=== PATIENT | female | born 2000 | race Caucasian/White ===

== ENCOUNTER → 2023-05-04 13:25 | Outpatient (BNVA) | payer OTHER, SELFPAY | PROVIDERS: Visit Provider Psychiatry & Neurology Psychiatry | DX: Z79.899 Other long term (current) drug therapy (principal) | CPT/HCPCS: 80053; 80061; 83036; 84443; 85025 ==

== ENCOUNTER 2023-08-09 17:54 | Emergency (ER) | payer BC, MEDICAID, SELFPAY ==
[2023-05-24 16:01] VITALS: BP 133/87
[2023-05-24 16:03] VITALS: BMI 24.1
[2023-08-09 17:56] VITALS: BP 126/81; PULSE 93; TEMP 36.9; O2SAT 99; BMI 25.1
--- NOTE | 2023-08-09 18:12 | W.ED.FEMALGU ---
HPI - Female Genitourinary General: Chief complaint: Urogenital-Female Stated complaint: RT flank pain Time Seen by Provider: 08/09/23 17:56 History of Present Illness: Patient presents to the ER with complaints of right-sided flank area pain. Pain started approximately 2 days ago. Deep breathing causes worse pain. Patient does have a history of kidney stones. Patient states when she takes a big deep breath it hurts and when she only breathes shallow it does not hurt. Patient went to the urgent care somewhere and had a CT scan report that showed she does not have any kidney stones. Patient showed me the report also showed 1 kidney on the right side is twice the size is the 1 on the left. Patient is nontoxic and does not appear in acute distress at this time. Review of Systems General: Reports: 10 or more systems reviewed and unremarkable except in HPI and below PFSH ED PFSH: Medical History Psychiatric care Family History Other Cancer Family history of premature coronary artery disease Hypertension Psychiatric illness Social History Smoking and tobacco/nicotine status: current every day tobacco/nicotine user cigarettes Packs smoked per day: 0.5 Years cigarettes smoked: 8 and e-cigarettes E-Cigarette Details: e-cigarette and with nicotine E-cig/vape details: 2-3 days Quit status (tobacco/nicotine): considering quitting Second hand smoke exposure: Yes Alcohol intake: former Year of sobriety/quit date alcohol: 2022 Former alcohol use details: 02.21.23 Substance/Drug Use: former Date of last use: 02.21.23 Adopted: No Caregiver/support person: No Lives independently: No Household members: other Details: Sabianism based group facility ([facility]) 5 otherscurrently Housing: Other Details: [facility] nursing home Marital status: Single Number of children: 2 Number of grandchildren: 0 Highest education level completed: 11th Grade service: No Current occupational status: employed 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 Pets and animals: No Leisure activites: reading and other Leisure activities details: watch movies Sexually active: No Do you think of yourself as: Straight/Heterosexual Current gender identity: Female Daisy/Oriental Orthodox: Sabianism Special daisy needs: No Agree to transfusion: Yes Female Reproductive History: Para: 2 Spontaneous abortions: Yes (X 1) Physical Exam Const: COMMON NORMALS: no acute distress, average body habitus, patient oriented x3, no limitations, healthy appearing, alert and well nourished HENMT: COMMON NORMALS: normocephalic, atraumatic, hearing grossly normal bilaterally, external ears normal, Normal external nose present, moist oral mucous membranes and oropharynx normal HEAD & SCALP: normocephalic and atraumatic NOSE: Normal external nose present EXTERNAL EAR: Yes external ears normal Neck/C-Spine: COMMON NORMALS: full ROM, no lymphadenopathy, supple, no meningeal signs, no JVD and Thyroid normal THYROID: Thyroid normal Chest: COMMONS NORMALS: normal inspection of the chest and normal palpation of entire chest wall Resp: COMMON NORMALS: normal respiratory effort, No retractions, No use of accessory muscles and clear to auscultation bilaterally AUSCULTATION: clear to auscultation bilaterally Cardio: COMMON NORMALS: no JVD, regular rate, regular rhythm, S1 normal heart sound present, S2 normal heart sound present, No gallops present (Cardio), No clicks present (Cardio), No murmurs present (Cardio) and No rub (Cardio) RATE: regular rate RHYTHM: regular rhythm HEART SOUNDS: S1 normal heart sound present and S2 normal heart sound present GI: COMMON NORMALS: Normal to inspection, nondistended, normoactive bowel sounds present, Soft to palpation, non-tender, No hepatosplenomegaly present and no masses PALPATION: Yes Soft to palpation and Yes No hepatosplenomegaly present Neuro: COMMON NORMALS: patient oriented x3 SENSORIUM/ORIENTATION: Yes alert MENINGEAL SIGNS: Yes no meningeal signs Course Vital Signs: Vital signs: Vital Signs Temperature 98.5 F 08/09/23 17:56 Pulse Rate 80 08/09/23 21:13 Respiratory Rate 18 08/09/23 21:13 Blood Pressure 123/88 08/09/23 21:13 Pulse Oximetry 97 08/09/23 21:13 Oxygen Delivery Me thod Room Air 08/09/23 21:13 MDM - Female Medical Decision Making After physical exam, review of the CT scan report you provided, review of the lab work, and chest x-ray, it is felt you have pleuritis or pleurisy. You will be given a prescription for prednisone and should follow-up with your family doctor within the next 7 to 10 days for further evaluation and treatment. Differential Diagnosis Unlikely abdominal pain, acute appendicitis, calculus of kidney, constipation, diverticulitis, endometriosis, gastroenteritis, pancreatitis or small bowel obstruction Medical Records I reviewed the patient's medical records. Lab Data I reviewed the patient's lab results. 08/09/23 18:54 08/09/23 18:54 Radiology Impressions Chest X-Ray 08/09/23 19:26 IMPRESSION: No acute findings. Laboratory Results WBC 11.00 10^3/uL (3.29-11.43) 08/09/23 18:54 RBC 4.01 10^6/uL (3.85-5.65) 08/09/23 18:54 Hgb 12.10 g/dL (11.27-16.99) 08/09/23 18:54 Hct 37.5 % (36-47) 08/09/23 18:54 MCV 93.5 fl (85-98) 08/09/23 18:54 MCH 30.2 pg (27-33) 08/09/23 18:54 MCHC 32.3 g/dL (30-55) 08/09/23 18:54 RDW 11.3 % (12.1-15.1) L 08/09/23 18:54 Plt Count 352 10^3/cmm (157-399) 08/09/23 18:54 MPV 8.8 fL (7.4-10.4) 08/09/23 18:54 Neut % (Auto) 70.4 % 08/09/23 18:54 Lymph % (Auto) 21.9 % 08/09/23 18:54 [place] % (Auto) 6.6 % 08/09/23 18:54 Eos % (Auto) 0.5 % 08/09/23 18:54 Baso % (Auto) 0.4 % 08/09/23 18:54 Neut # (Auto) 7.74 10^3/uL (1.8-7.7) H 08/09/23 18:54 Lymph # (Auto) 2.4 10^3/uL (0.8-4.8) 08/09/23 18:54 [place] # (Auto) 0.7 10^3/uL (0.2-0.9) 08/09/23 18:54 Eos # (Auto) 0.1 10^3/uL (0.0-0.8) 08/09/23 18:54 Baso # (Auto) 0.0 10^3/uL (0.0-0.1) 08/09/23 18:54 Nucleated RBC % (auto) 0 % 08/09/23 18:54 Nucleated RBCs # 0.0 /100WBC 08/09/23 18:54 Sodium 139 mmol/L (136-145) 08/09/23 18:54 Potassium 4.4 mmol/L (3.5-5.1) 08/09/23 18:54 Chloride 102 mmol/L (98-107) 08/09/23 18:54 Carbon Dioxide 26 mmol/L (22-29) 08/09/23 18:54 Anion Gap 15.4 (5-19) 08/09/23 18:54 BUN 13 mg/dL (6-20) 08/09/23 18:54 Creatinine 0.6 mg/dL (0.5-0.9) 08/09/23 18:54 GFR Calculation 125.0 mL/min (90-130) 08/09/23 18:54 Glucose 89 mg/dL (65-115) 08/09/23 18:54 Calculated Osmolality 288 mOsm/kg (285-295) 08/09/23 18:54 Calcium 9.5 mg/dL (8.5-10.5) 08/09/23 18:54 Total Bilirubin 0.2 mg/dL (0.15-1.2) 08/09/23 18:54 AST 20 U/L (0-32) 08/09/23 18:54 ALT 12 U/L (0-33) 08/09/23 18:54 Alkaline Phosphatase 65 U/L (35-105) 08/09/23 18:54 C-Reactive Protein 92.1 mg/L (0.0-4.9) H 08/09/23 18:54 Total Protein 8.3 g/dL (6.6-8.7) 08/09/23 18:54 Albumin 4.0 g/dL (3.5-5.2) 08/09/23 18:54 Globulin 4.3 g/dL (1.3-4.6) 08/09/23 18:54 Urine Color Colorless (Yellow) 08/09/23 18:26 Urine Appearance Clear (CLEAR) 08/09/23 18:26 Urine pH 7 (5-7) 08/09/23 18:26 Ur Specific [place] 1.005 (1.005-1.030) 08/09/23 18:26 Urine Protein Neg (Negative) 08/09/23 18:26 Urine Glucose (UA) Norm (Normal) 08/09/23 18:26 Urine Ketones Negative (Negative) 08/09/23 18:26 Urine Blood 2+ (Negative) H 08/09/23 18:26 Urine Nitrate Negative (Negative) 08/09/23 18:26 Urine Bilirubin Neg (Negative) 08/09/23 18:26 Urine Urobilinogen Norm mg/dL (Negative) 08/09/23 18:26 Ur Leukocyte Esterase Negative (Negative) 08/09/23 18:26 Urine RBC 0-4 /hpf (0-2) H 08/09/23 18:26 Urine WBC 0-4 /hpf (0-5) H 08/09/23 18:26 Ur Squamous Epith Cells 0-4 /hpf (0-5) H 08/09/23 18:26 Ur Transition Epith Cell 0-4 /hpf 08/09/23 18:26 Amorphous Sediment Not Reportable 08/09/23 18:26 Urine Bacteria Trace /hpf (NONE) 08/09/23 18:26 Urine Mucus None /hpf 08/09/23 18:26 All radiology interpretation(s) finalized by discharge Discharge Plan Discharge Patient Disposition: Home Clinical Impression: Pleurisy Condition: Stable Prescriptions: New prednisone 50 mg tablet 50 mg PO DAILY 5 Days Qty: 5 0RF Discharge Orders: Discharge ED (Routine); Ordered 08/09/23 Ordered By: Vijay Tate Patient Instructions: Pleurisy Activity Restrictions/Additional Instructions: Please take all your prednisone as directed. Please follow-up with your family practice physician within the next 7 to 10 days as needed for further evaluation and treatment. Coding Level of Care Code ED Fishing Tool Supervisor for Montez Samson
[2023-08-09 18:17] VITALS: BP 116/79; PULSE 90; RESP 18; O2SAT 96
[2023-08-09 18:47] VITALS: BP 123/82; PULSE 81; RESP 16; O2SAT 99
--- NOTE | 2023-08-09 18:48 | PC.NURSE ---
assumed care of pt at this time
[2023-08-09 19:10] LABS: Basophils % 0.4 %; Eosinophils # 0.1 10^3/uL (0.0-0.8); Eosinophils % 0.5 %; Hematocrit 37.5 % (36-47); Lymphocytes # 2.4 10^3/uL (0.8-4.8); Lymphocytes % 21.9 %; Mean Corpuscular HGB Conc 32.3 g/dL (30-55); Mean Corpuscular Hemoglobin 30.2 pg (27-33); Mean Corpuscular Volume 93.5 fl (85-98); Mean Platelet Volume 8.8 fL (7.4-10.4); Monocytes # 0.7 10^3/uL (0.2-0.9); Monocytes % 6.6 %; Neutrophils # 7.74 10^3/uL (1.8-7.7); Neutrophils % 70.4 %; Nucleated Red Blood Cells % 0 %; Platelet Count 352 10^3/cmm (157-399); Red Blood Count 4.01 10^6/uL (3.85-5.65); Red Cell Distribution Width 11.3 % (12.1-15.1)
--- NOTE | 2023-08-09 19:26 | XRR_ITS ---
PROCEDURE INFORMATION: Exam: XR Chest Exam date and time: 08/09/2023 7:30 PM Age: 23 years old Clinical indication: Pain; Chest pressure; Additional info: Rll pleuritic type pain TECHNIQUE: Imaging protocol: Radiologic exam of the chest. Views: 1 view. COMPARISON: No relevant prior studies available. FINDINGS: Lungs: Unremarkable. No consolidation. Pleural spaces: Unremarkable. No pleural effusion. No pneumothorax. Heart/Mediastinum: Unremarkable. No cardiomegaly. Bones/joints: Unremarkable. XR/XR chest 1V portable [id number] IMPRESSION: No acute findings.
[2023-08-09 19:36] LABS: Add Urine Microscopic? YES; Bilirubin Urine Neg (Negative); Blood Urine 2+ (Negative); Glucose Urine UA Norm (Normal); Ketones Urine Negative (Negative); Leukocyte Esterase Urine Negative (Negative); Nitrate Urine Negative (Negative); Protein Urine Neg (Negative); Specific Gravity, Urine 1.005 (1.005-1.030); Urine Appearance Clear (CLEAR); Urine Color Colorless (Yellow); Urobilinogen Urine Norm (Negative); pH Urine 7 (5-7)
[2023-08-09 19:38] LABS: Add Urine Culture? No; Bacteria Urine TRACE /hpf; RBC Urine 0-4 /hpf (0-2); Squamous Epithelial Cell Urine 0-4 /hpf (0-5); Transitional Epi Cells Urine 0-4 /hpf; WBC Urine 0-4 /hpf (0-5)
[2023-08-09 19:52] LABS: Alanine Aminotransferase 12 U/L (0-33); Alkaline Phosphatase 65 U/L (35-105); Blood Urea Nitrogen 13 mg/dL (6-20); C Reactive Protein 92.1 mg/L (0.0-4.9); Calcium 9.5 mg/dL (8.5-10.5); Carbon Dioxide 26 mmol/L (22-29); Chloride 102 mmol/L (98-107); Globulin 4.3 g/dL (1.3-4.6); Glucose 89 mg/dL (65-115); Osmolality Calculated 288 mOsm/kg (285-295); Sodium 139 mmol/L (136-145); Total Bilirubin 0.2 mg/dL (0.15-1.2); Total Protein 8.3 g/dL (6.6-8.7)
[2023-08-09 19:53] LABS: Anion Gap 15.4 (5-19); Aspartate Amino Transferase 20 U/L (0-32); Potassium 4.4 mmol/L (3.5-5.1)
[2023-08-09 20:34] VITALS: BP 133/76; PULSE 83; RESP 18; O2SAT 98
[2023-08-09 21:13] VITALS: BP 123/88; PULSE 80; RESP 18; O2SAT 97
[2023-08-09] MEDS: dexamethasone 10 mg/mL INJ IM (21:45)
[2023-08-09] MEDS: ketorolac 30 mg/mL INJ IM (21:45)
[2023-08-09 21:46] VITALS: BP 128/82; PULSE 71; RESP 18; O2SAT 97
== END 2023-08-09 21:47 | disposition home or self-care (01) ==
PROVIDERS: Emergency Provider Emergency Medicine; PCP Physician Assistant
DX: R09.1 Pleurisy (principal); F17.210 Nicotine dependence, cigarettes, uncomplicated; F17.290 Nicotine dependence, other tobacco product, uncomplicated
CPT/HCPCS: 36415; 71045; 80053; 81001; 85025; 86140; 96372; 99284; J1100; J1885

== ENCOUNTER 2024-02-17 11:15 | Outpatient (CLI) | payer OTHER, SELFPAY ==
[2023-05-24 16:01] VITALS: BP 133/87
[2023-05-24 16:03] VITALS: BMI 24.1
--- NOTE | 2024-02-17 11:22 | XR_ITS ---
WS: [id number] Exam: XR sacroiliac jts m 3V [id number] Date/Time of Exam: 02/17/2024 11:56 AM Reason For Exam: Z79.899 - Other long-term (current) drug therapy No fracture or bone destruction. The SI joints are open. The sacrum is unremarkable. XR/XR sacroiliac jts m 3V [id number] IMPRESSION: 1. Unremarkable bilateral SI joints.
--- NOTE | 2024-02-17 11:22 | XR_ITS ---
WS: [email or web address] Exam: XR wrist RT min 3V* [id number] Date/Time of Exam: 02/17/2024 11:56 AM Reason For Exam: Z79.899 - Other alf (current) drug therapy There are no fractures, soft tissue swelling, or unusual calcifications. The wrist shows normal bony alignment. There is no irregularity of the bony architecture. XR/XR wrist RT min 3V* [id number] IMPRESSION: Negative RIGHT wrist.
--- NOTE | 2024-02-17 11:22 | XR_ITS ---
WS: [email or web address] Exam: XR thoracic spine 3V* [id number] Date/Time of Exam: 02/17/2024 11:56 AM Reason For Exam: Z79.899 - Other senior care (current) drug therapy Findings: In the AP projection, the thoracic spine is straight. In the lateral projection, the thoracic curve is well maintained. The intervertebral disc spaces are intact. No fractures or anomalies of the tho racic spine are noted. XR/XR thoracic spine 3V* [id number] IMPRESSION: Negative thoracic spine.
[2024-02-17 12:29] LABS: Erythrocyte Sedimentation Rate 6 mm/hr (0-15)
== END 2024-02-17 11:16 | disposition home or self-care (01) ==
LOC: LAB 11:18
PROVIDERS: PCP Physician Assistant; Visit Provider Internal Medicine Rheumatology
DX: Z79.899 Other long term (current) drug therapy (principal); M19.90 Unspecified osteoarthritis, unspecified site
CPT/HCPCS: 72072; 72202; 73110; 85651; 86140

== ENCOUNTER 2024-05-04 18:43 | Emergency (ER) | payer BC, MEDICAID, SELFPAY ==
[2023-05-24 16:01] VITALS: BP 133/87
[2023-05-24 16:03] VITALS: BMI 24.1
[2024-05-04 19:17] VITALS: BP 92/61; PULSE 99; RESP 16; TEMP 36.7; O2SAT 98; BMI 21.4
[2024-05-04 20:31] VITALS: BP 120/71; PULSE 93; RESP 14; O2SAT 98
--- NOTE | 2024-05-04 20:33 | W.ED.WEAKNES ---
HPI - Weakness General: Chief complaint: Weakness Stated complaint: Sore tHROAT Time Seen by Provider: 05/04/24 20:16 History of Present Illness: 24-year-old female with a history of unilateral kidney presents emergency room with sore throat and weakness. Has been going on for a few days. She has some lesions on her nose and cheek that she says are from a cream she got from [employer] for acne. No abdominal pain. No nausea or vomiting. She has some malaise. Review of Systems Narrative: Constitutional symptoms: Negative except as documented in HPI. Skin symptoms: Negative except as documented in HPI. Eye symptoms: Negative except as documented in HPI. ENMT symptoms: Negative except as documented in HPI. Respiratory symptoms: Negative except as documented in HPI. Cardiovascular symptoms: Negative except as documented in HPI. Gastrointestinal symptoms: Negative except as documented in HPI. Genitourinary symptoms: Negative except as documented in HPI. Musculoskeletal symptoms: Negative except as documented in HPI. Neurologic symptoms: Negative except as documented in HPI. Psychiatric symptoms: Negative except as documented in HPI. Endocrine symptoms: Negative except as documented in HPI. 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 Depression with anxiety Mood disorder Joint pain Elevated erythrocyte sedimentation rate Elevated C-reactive protein Chronic low back pain Psychiatric care Surgical History (Updated 02/02/24 @ 13:12 by Paulo Covington MD) History of wisdom tooth extraction History of appendectomy Family History (Updated 02/02/24 @ 10:41 by Melissa Gutierrez LPN) Other Cancer Family history of premature coronary artery disease Hypertension Psychiatric illness Denies family history of Lupus (systemic lupus erythematosus) Rheumatoid arthritis Social History Smoking and tobacco/nicotine status: never used tobacco/nicotine Quit status (tobacco/nicotine): considering quitting Second hand smoke exposure: Yes Alcohol intake: former Year of sobriety/quit date alcohol: 2022 Former alcohol use details: 02.21.23 Substance/Drug Use: former Date of last use: 02.21.23 Adopted: No Caregiver/support person: No Lives independently: No Household members: other Details: [place] based group facility ([facility]) 5 otherscurrently Housing: Other Details: [facility] Marital status: Single Number of children: 2 Number of grandchildren: 0 Highest education level completed: 11th Grade service: No 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 Skin: Warm, dry. Abrasion type lesions on the cheek and nose. Head: Normocephalic, atraumatic. Neck: Supple, trachea midline. Eye: Extraocular movements are intact. Ears, nose, mouth and throat: Erythematous pharynx with some exudate, dry oral mucosa Cardiovascular: Regular, Normal peripheral perfusion. Respiratory: Lungs are clear to auscultation, respirations are non-labored, breath sounds are equal, Symmetrical chest wall expansion. Gastrointestinal: Soft, Nontender, Non distended Musculoskeletal: Normal ROM, no deformity. Neurological: Alert and oriented, No focal neurological deficit observed. Psychiatric: Cooperative, appropriate mood & affect. Course Vital Signs: Vital signs: Vital Signs Temperature 98.0 F 05/04/24 19:17 Pulse Rate 96 05/04/24 21:42 Respiratory Rate 12 05/04/24 21:42 Blood Pressure 102/65 05/04/24 21:42 Pulse Oximetry 94 05/04/24 21:42 Oxygen Delivery Me thod Room Air 05/04/24 21:42 MDM - Weakness Medical Decision Making Medical decision making: Differential diagnosis including but not limited to and based on the above HPI, review of systems and physical exam: Patient has several complaints. Weakness, sore throat. She has some strange rash. Have concern for UTI, strep throat, viral pharyngitis, mono. Dehydration. Orders placed to evaluate differential diagnosis based on the above differential, HPI and physical exam Lab Review: Laboratory results were reviewed and interpreted by myself the emergency room physician. Patient has some leukocytosis with a white count of 16.8. Hemoglobin is 12. BUN and creatinine are elevated for a 24-year-old at 16 and 1.1. Urinalysis is concentrated with 2+ leukocyte esterase, and white cells present which would indicate a urinary tract infection. Urine drug screen is positive for opiates, benzos and methamphetamine. I reviewed the patient's medical record. Reexamination: Patient has remained stable. She has a borderline low blood pressure but this can be normal in a female her age. She is not tachycardic after fluids no altered mental status. No focal motor deficits. She is a little bit somnolent. I did bring up the methamphetamine in her urine and discussed that if she is injecting methamphetamine this could result in bacteremia and endocarditis and that I strongly suggest she not. She denies it at this time. Her CRP is quite elevated. She tells me that it is always up because of possible rheumatoid arthritis. Assessment and plan: Pharyngitis Urinary tract infection Dehydration -Normal saline bolus, IV Rocephin in the emergency room. -Blood cultures were sent. - Discharged home - Discussed findings and plan with patient. Answered any questions. - All laboratory values were reviewed and interpreted personally by myself, the ER physician - Evaluation and treatment of this problem were appropriate in the emergency setting Lab Data 05/04/24 20:28 05/04/24 20: Laboratory Results WBC 16.77 10^3/uL (3.29-11.43) H 05/04/24 20: RBC 4.00 10^6/uL (3.85-5.65) 05/04/24 20: Hgb 12.20 g/dL (11.27-16.99) 05/04/24 20: Hct 38.0 % (36-47) 05/04/24 20: MCV 95.0 fl (85-98) 05/04/24 20: MCH 30.5 pg (27-33) 05/04/24 20: MCHC 32.1 g/dL (30-55) 05/04/24 20: RDW 12.9 % (12.1-15.1) 05/04/24 20: Plt Count 253 10^3/cmm (157-399) 05/04/24 20: MPV 9.8 fL (7.4-10.4) 05/04/24 20: Neut % (Auto) 85.1 % 05/04/24 20:28 Lymph % (Auto) 3.5 % 05/04/24 20: [place] % (Auto) 6.7 % 05/04/24 20: Eos % (Auto) 3.6 % 05/04/24 20: Baso % (Auto) 0.4 % 05/04/24 20: Neut # (Auto) 14.28 10^3/uL (1.8-7.7) H 05/04/24 20: Lymph # (Auto) 0.6 10^3/uL (0.8-4.8) L 05/04/24 20: [place] # (Auto) 1.1 10^3/uL (0.2-0.9) H 05/04/24: Eos # (Auto) 0.6 10^3/uL (0.0-0.8) 05/04/24: Baso # (Auto) 0.1 10^3/uL (0.0-0.1) 05/04/24: Nucleated RBC % (auto) 0 % 05/04/24: Nucleated RBCs # 0.0 /100WBC 05/04/24: ESR 12 mm/hr (0-15) 05/04/24 20: Sodium 138 mmol/L (136-145) 05/04/24 20: Potassium 3.7 mmol/L (3.5-5.1) 05/04/24 20: Chloride 102 mmol/L (98-107) 05/04/24 20: Carbon Dioxide 27 mmol/L (22-29) 05/04/24: Anion Gap 12.7 (5-19) 05/04/24 20: BUN 16 mg/dL (6-20) 05/04/24 20: Creatinine 1.1 mg/dL (0.5-0.9) H 05/04/24 20: GFR Calculation 61.6 mL/min (90-130) L 05/04/24 20: Glucose 87 mg/dL (65-115) 05/04/24 20: Calculated Osmolality 287 mOsm/kg (285-295) 05/04/24 20: Lactic Acid 2.3 mmol/L (0.5-2.2) H 05/04/24:28 Calcium 8.8 mg/dL (8.5-10.5) 05/04/24 20: Total Bilirubin 0.4 mg/dL (0.15-1.2) 05/04/24 20: AST 79 U/L (0-32) H 05/04/24 20: ALT 55 U/L (0-33) H 05/04/24 20:28 Alkaline Phosphatase 121 U/L (35-105) H 05/04/24 20: Creatine Kinase 211 U/L (26-192) H 05/04/24 20: C-Reactive Protein 403.9 mg/L (0.0-4.9) H 05/04/24 20: Total Protein 6.8 g/dL (6.6-8.7) 05/04/24 20: Albumin 3.6 g/dL (3.5-5.2) 05/04/24: Globulin 3.2 g/dL (1.3-4.6) 05/04/24 20: Procalcitonin 1.14 ng/mL (0-0.5) H 05/04/24 20: HCG, Qual Negative (Negative) 05/04/24 20: Urine Color Dark yellow (Yellow) A 05/04/24 20: Urine Appearance Cloudy (CLEAR) A 05/04/24 20: Urine pH 5.0 (5-7) 05/04/24 20: Ur Specific [place] 1.025 (1.005-1.030) 05/04/24 20: Urine Protein 1+ (Negative) A 05/04/24 20: Urine Glucose (UA) Negative (Normal) 05/04/24 20: Urine Ketones 1+ (Negative) H 05/04/24 20:37 Urine Blood Trace (Negative) A 05/04/24: Urine Nitrate Negative (Negative) 05/04/24 20: Urine Bilirubin Negative (Negative) 05/04/24 20: Urine Urobilinogen 1.0 mg/dL (Negative) 05/04/24 20: Ur Leukocyte Esterase 2+ (Negative) A 05/04/24 20: Urine RBC 0-2 /hpf (0-2) 05/04/24 20: Urine WBC 11-20 /hpf (0-5) H 05/04/24 20:37 Ur Squamous Epith Cells 11-20 /hpf (0-5) 05/04/24 20:37 Amorphous Sediment Not Reportable 05/04/24 20:37 Urine Bacteria 1+ /hpf (NONE) H 05/04/24 20:37 Hyaline Casts 34.74 /lpf 05/04/24 20:37 Fine Granular Casts 0-4 /lpf H 05/04/24 20:37 Urine Mucus 1+ /hpf 05/04/24 20:37 Salicylates < 0.3 mg/dL (3-10) L 05/04/24 20:28 Urine Opiates Screen Positive ng/mL (Negative) H 05/04/24 20:37 Acetaminophen 5.8 ug/mL (10-30) L 05/04/24 20:28 Ur Barbiturates Screen Negative ng/mL (Negative) 05/04/24 20:37 Ur Phencyclidine Scrn Negative ng/mL (Negative) 05/04/24 20:37 Ur Amphetamines Screen Positive ng/mL (Negative) H 05/04/24 20:37 U Benzodiazepines Scrn Positive ng/mL (Negative) H 05/04/24 20:37 Urine Cocaine Screen Negative ng/mL (Negative) 05/04/24 20:37 U Marijuana (THC) Screen Negative ng/mL (Negative) 05/04/24 20:37 Ethyl Alcohol < 10 mg/dL (0-10) 05/04/24 20:28 Serum Ketones Negative (Negative) 05/04/24 20:28 Monoscreen Negative (Negative) 05/04/24 20:28 No radiology studies performed this visit Discharge Plan Discharge Patient Disposition: Home Clinical Impression: Urinary tract infection, Dehydration, Pharyngitis Condition: Stable Prescriptions: New dexamethasone 6 mg tablet 6 mg PO DAILY 5 Days Qty: 5 0RF cefdinir 300 mg capsule 300 mg PO BID 10 Days Qty: 20 0RF No Action venlafaxine 37.5 mg capsule,extended release 24hr 37.5 mg PO DAILY buspirone 5 mg tablet 5 mg PO BID gabapentin 300 mg capsule 300 mg PO TID diclofenac sodium 75 mg tablet,delayed release (DR/EC) 75 mg PO BID PRN (Reason: pain) Qty: 60 1RF Discharge Orders: Discharge ED (Routine); Ordered 05/04/24 Ordered By: Talya Alberts Referrals: Eliz Rodriguez PA-C [Primary Care Provider] - Discharge Diet: Usual diet Discharge Activity: Increase activity as tolerated Patient Instructions: Urinary Tract Infection in Women (ED), Pharyngitis (ED) Activity Restrictions/Additional Instructions: Thank you for choosing [facility] for your healthcare needs today. Please realize this is an emergency room and that we are providing you with a medical screening exam and this may not be complete and all inclusive of all the testing and or work up that you may need to determine your ailment or severity of your illness. You have been screened and evaluated and felt safe for discharge. Health conditions do change or evolve sometimes and as such it is important that you follow up with your Primary Doctor to be re checked, 3-5 days is a general good time frame for follow up. You are always welcome to return to the ED for re assessment if your symptoms are worsening or you have new concerns Coding Level of Care Code ED Senior Sql Database Developer for g Fwd Related Data Home Medications Medication Instructions Recorded Confirmed buspirone 5 mg tablet 5 mg PO BID 02/02/24 02/02/24 gabapentin 300 mg capsule 300 mg PO TID 02/02/24 02/02/24 venlafaxine 37.5 mg 37.5 mg PO DAILY 02/02/24 02/02/24 capsule,extended release 24 hr Previous Rx's Medication Instructions Recorded diclofenac sodium 75 mg 75 mg PO BID PRN pain #60 tabs 02/29/24 tablet,delayed release cefdinir 300 mg capsule 300 mg PO BID 10 days #20 caps 05/04/24 dexamethasone 6 mg tablet 6 mg PO DAILY 5 days #5 tabs 05/04/24 Allergies Allergy/AdvReac Type Severity Reaction Status Date / Time No Known Allergies Allergy Verified 02/02/24 10:37
[2024-05-04 20:39] LABS: Basophils # 0.1 10^3/uL (0.0-0.1); Basophils % 0.4 %; Eosinophils # 0.6 10^3/uL (0.0-0.8); Eosinophils % 3.6 %; Lymphocytes # 0.6 10^3/uL (0.8-4.8); Lymphocytes % 3.5 %; Mean Corpuscular HGB Conc 32.1 g/dL (30-55); Mean Corpuscular Hemoglobin 30.5 pg (27-33); Mean Platelet Volume 9.8 fL (7.4-10.4); Monocytes # 1.1 10^3/uL (0.2-0.9); Monocytes % 6.7 %; Neutrophils # 14.28 10^3/uL (1.8-7.7); Neutrophils % 85.1 %; Nucleated Red Blood Cells % 0 %; Platelet Count 253 10^3/cmm (157-399); Red Cell Distribution Width 12.9 % (12.1-15.1); White Blood Count 16.77 10^3/uL (3.29-11.43)
[2024-05-04 20:40] LABS: Erythrocyte Sedimentation Rate 12 mm/hr (0-15)
[2024-05-04 20:51] LABS: Bilirubin Urine Negative (Negative); Blood Urine Trace (Negative); Glucose Urine UA Negative (Normal); Ketones Urine 1+ (Negative); Leukocyte Esterase Urine 2+ (Negative); Nitrate Urine Negative (Negative); Protein Urine 1+ (Negative); Specific Gravity, Urine 1.025 (1.005-1.030); Urine Appearance Cloudy (CLEAR); Urine Color Dark Yellow (Yellow)
[2024-05-04 20:53] LABS: Ketone (Acetest) Serum Negative (Negative)
[2024-05-04 20:56] LABS: Bacteria Urine 1+ /hpf; Hyaline Casts Urine 34.74 /lpf; RBC Urine 0-2 /hpf (0-2)
[2024-05-04 20:56] LABS: HCG, Serum Qual Negative (Negative); Monoscreen Negative (Negative)
[2024-05-04 20:58] LABS: Acetaminophen 5.8 ug/mL (10-30); Alanine Aminotransferase 55 U/L (0-33); Albumin Level 3.6 g/dL (3.5-5.2); Alcohol Level < 10 mg/dL (0-10); Alkaline Phosphatase 121 U/L (35-105); Anion Gap 12.7 (5-19); Aspartate Amino Transferase 79 U/L (0-32); Blood Urea Nitrogen 16 mg/dL (6-20); Calcium 8.8 mg/dL (8.5-10.5); Carbon Dioxide 27 mmol/L (22-29); Chloride 102 mmol/L (98-107); Creatine Phosphokinase 211 U/L (26-192); Creatinine Clr Calc Pharmacy 61.8941; Globulin 3.2 g/dL (1.3-4.6); Glomerular Filtration Rate 61.6 mL/min (90-130); Glucose 87 mg/dL (65-115); Osmolality Calculated 287 mOsm/kg (285-295); Potassium 3.7 mmol/L (3.5-5.1); Salicylate < 0.3 mg/dL (3-10); Sodium 138 mmol/L (136-145); Total Bilirubin 0.4 mg/dL (0.15-1.2); Total Protein 6.8 g/dL (6.6-8.7)
[2024-05-04 20:59] LABS: Lactic Sepsis W/Reflex 2.3 mmol/L (0.5-2.2)
[2024-05-04 21:04] LABS: Procalcitonin 1.14 ng/mL (0-0.5)
[2024-05-04 21:06] LABS: UA Slide Review UA Slide Review Perf
[2024-05-04 21:07] LABS: Fine Granular Casts Urine 0-4 /lpf; Mucus Urine 1+ /hpf
[2024-05-04] MEDS: sodium chloride 0.9% 1,000 ML 999 ML IV (21:12)
[2024-05-04 21:13] VITALS: BP 92/53; PULSE 91; RESP 14; O2SAT 97
[2024-05-04 21:14] LABS: C Reactive Protein 403.9 mg/L (0.0-4.9)
[2024-05-04 21:22] LABS: Amphetamines Screen Urine Positive (Negative); Barbiturates Screen Urine Negative (Negative); Benzodiazepines Screen Urine Positive (Negative); Cocaine Screen Urine Negative (Negative); Opiate Screen Urine Positive (Negative); PCP Screen Urine Negative (Negative); THC Screen Urine Negative (Negative)
[2024-05-04] MEDS: cefTRIAXone 1,000 mg SDV 2000 MG IVP (21:37)
[2024-05-04 21:42] VITALS: BP 102/65; PULSE 96; RESP 12; O2SAT 94
[2024-05-04 22:23] LABS: Reflex Lactate Order REFLEX LACTIC ORDERD
[2024-05-04 22:35] VITALS: BP 114/78; PULSE 89; RESP 14; O2SAT 94
[2024-05-04 22:41] LABS: Adenovirus Not Detected (NOT DETECT); Chlamydia Pneumoniae Not Detected (NOT DETECT); Coronavirus 229E,HKU1,NL63,OC4 Not Detected (NOT DETECT); Human Metapneumovirus Not Detected (NOT DETECT); Human Rhinovirus/Enterovirus Not Detected (NOT DETECT); Influenza A Not Detected (NOT DETECT); Influenza A H1 Not Detected (NOT DETECT); Influenza A H1-2009 Not Detected (NOT DETECT); Influenza A H3 Not Detected (NOT DETECT); Influenza B Not Detected (NOT DETECT); Mycoplasma Pneumoniae Not Detected (NOT DETECT); Parainfluenza Virus Type 1 Not Detected (NOT DETECT); Parainfluenza Virus Type 2 Not Detected (NOT DETECT); Parainfluenza Virus Type 3 Not Detected (NOT DETECT); Parainfluenza Virus Type 4 Not Detected (NOT DETECT); Respiratory Syncytial Virus A Not Detected (NOT DETECT); Respiratory Syncytial Virus B Not Detected (NOT DETECT); SARS-COV-2 Not Detected (NOT DETECT)
== END 2024-05-04 22:33 | disposition home or self-care (01) ==
PROVIDERS: Emergency Provider Emergency Medicine; PCP Physician Assistant
DX: N39.0 Urinary tract infection, site not specified (principal); E86.0 Dehydration; J02.9 Acute pharyngitis, unspecified; Z77.22 Contact with and (suspected) exposure to environmental tobacco smoke (acute) (chronic)
CPT/HCPCS: 80053; 80306; 80307; 81001; 82009; 82550; 83605; 84145; 84703; 85025; 85651; 86140; 86308; 87040; 87486; 87581; 87633; 96361; 96374; 99284; J0696; J7030

== ENCOUNTER 2024-05-30 19:11 | Emergency (ER) | payer BC, MEDICAID, SELFPAY ==
[2023-05-24 16:01] VITALS: BP 133/87
[2023-05-24 16:03] VITALS: BMI 24.1
[2024-05-30 19:28] VITALS: BP 114/79; PULSE 68; RESP 16; TEMP 36.4; O2SAT 99; BMI 18.9
[2024-05-30 19:36] VITALS: PULSE 65; RESP 16; O2SAT 98
[2024-05-30 19:57] LABS: Basophils % 0.5 %; Eosinophils # 0.2 10^3/uL (0.0-0.8); Eosinophils % 2.4 %; Hematocrit 35.9 % (36-47); Lymphocytes # 3.2 10^3/uL (0.8-4.8); Lymphocytes % 41.4 %; Mean Corpuscular HGB Conc 33.1 g/dL (30-55); Mean Corpuscular Hemoglobin 30.8 pg (27-33); Monocytes # 0.6 10^3/uL (0.2-0.9); Neutrophils # 3.79 10^3/uL (1.8-7.7); Neutrophils % 48.4 %; Nucleated Red Blood Cells % 0 %; Platelet Count 322 10^3/cmm (157-399); Red Blood Count 3.86 10^6/uL (3.85-5.65); Red Cell Distribution Width 12.8 % (12.1-15.1); White Blood Count 7.83 10^3/uL (3.29-11.43)
[2024-05-30 20:32] LABS: Alanine Aminotransferase 8 U/L (0-33); Albumin Level 4.1 g/dL (3.5-5.2); Alkaline Phosphatase 79 U/L (35-105); Anion Gap 15.4 (5-19); Aspartate Amino Transferase 15 U/L (0-32); Blood Urea Nitrogen 11 mg/dL (6-20); Calcium 9.4 mg/dL (8.5-10.5); Carbon Dioxide 27 mmol/L (22-29); Chloride 99 mmol/L (98-107); Creatinine Clr Calc Pharmacy 80.9696; Globulin 3.8 g/dL (1.3-4.6); Glomerular Filtration Rate 88.9 mL/min (90-130); Glucose 110 mg/dL (65-115); Osmolality Calculated 286 mOsm/kg (285-295); Potassium 3.4 mmol/L (3.5-5.1); Sodium 138 mmol/L (136-145); Total Bilirubin 0.3 mg/dL (0.15-1.2); Total Protein 7.9 g/dL (6.6-8.7)
--- NOTE | 2024-05-30 20:42 | ED_ITS ---
HPI - Skin/Abscess/Foreign Bdy 2 General: Chief complaint: Skin/Abscess/Foreign Body Stated complaint: vag bleed believes miscarige , staph infec Time Seen by Provider: 05/30/24 19:51 Source: patient and family Mode of arrival: ambulatory Limitations: no limitations History of Present Illness: Patient is a 24-year-old female presents to ED today mainly for concern of skin abscesses and sores. She states she has an abscess to her right axillary region. Patient has a history of polysubstance abuse and admitting only uses IV opiates and methamphetamine. 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 She is here with a traffic warehouse supervisor of some type of [employer] program as well as a multifocal lens inspector. They are hoping patient would be able to stay for mental health . They are trying to get her sober. Patient states she has recently got on her psychiatric meds through [facility]. She does have upcoming follow-up with them. Patient states she does not want to mental health at this time. She is not actively suicidal. Patient is her own legal guardian complaint: abscess/boil and lesion Onset (ago): day(s) Tetanus up to date: no Location: generalized Severity: moderate Pain Consistency: constant Relieving factors: none Exacerbating factors: other (drug use) Context: IVDA Associated symptoms: Reports no associated symptoms; Deny chills, fever(s) or vomiting Treatments prior to arrival: none Related Data Home Medications Medication Instructions Recorded Confirmed buspirone 5 mg tablet 5 mg PO BID 02/02/24 02/02/24 gabapentin 300 mg capsule 300 mg PO TID 02/02/24 02/02/24 venlafaxine 37.5 mg 37.5 mg PO DAILY 02/02/24 02/02/24 capsule,extended release 24 hr Previous Rx's Medication Instructions Recorded diclofenac sodium 75 mg 75 mg PO BID PRN pain #60 tabs 05/28/24 tablet,delayed release chlorhexidine gluconate 4 % 1 applic topical .qd 2 weeks 05/30/24 topical liquid #3,800 mL doxycycline monohydrate 100 mg 100 mg PO Q12H 10 days #20 caps 05/30/24 capsule Allergies Allergy/AdvReac Type Severity Reaction Status Date / Time No Known Allergies Allergy Verified 02/02/24 10:37 Review of Systems 2 Const: Denies: fever(s), chills, body aches, fatigue or malaise Card: Denies: chest pain Resp: Denies: dyspnea GI: Denies: abdominal pain, vomiting or diarrhea : Denies: flank pain or dysuria Musc: Denies: neck pain, back pain, extremity pain, extremity swelling, joint pain or joint swelling Skin/Breast: Reports: other (several skin lesions; abscess to R axilla) Neuro: Denies: headache(s), numbness in extremities, weakness in extremities or sensory changes Psych: Reports: anxiety PFSH ED 2 PFSH: Medical History Carpal tunnel syndrome of right wrist 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 Depression with anxiety Mood disorder Joint pain Elevated erythrocyte sedimentation rate Elevated C-reactive protein Chronic low back pain Psychiatric care Surgical History History of wisdom tooth extraction History of appendectomy Family History Other Cancer Family history of premature coronary artery disease Hypertension Psychiatric illness Denies family history of Lupus (systemic lupus erythematosus) Rheumatoid arthritis Social History Smoking and tobacco/nicotine status: never used tobacco/nicotine Quit status (tobacco/nicotine): considering quitting Second hand smoke exposure: Yes Alcohol intake: former Year of sobriety/quit date alcohol: 2022 Former alcohol use details: 02.21.23 Substance/Drug Use: former Date of last use: 02.21.23 Adopted: No Caregiver/support person: No Lives independently: No Household members: other Details: [facility] based group facility ([facility]) 5 otherscurrently Housing: Other Details: [facility] Marital status: Single Number of children: 2 Number of grandchildren: 0 Highest education level completed: 11th Grade service: No Current occupational status: employed 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 Pets and animals: No Leisure activites: reading and other Leisure activities details: watch movies Sexually active: No Do you think of yourself as: Straight/Heterosexual Current gender identity: Female Daisy/Druze: Jehovah'S Witness Special daisy needs: No Agree to transfusion: Yes Female Reproductive History: Para: 2 Spontaneous abortions: Yes (X 1) Physical Exam 2 Const: COMMON NORMALS: no acute distress, average body habitus, patient oriented x3, no limitations, healthy appearing, alert and well nourished G ENERAL APPEARANCE: cooperative ORIENTATION/CONSCIOUSNESS: Yes awake, Yes oriented to person, Yes oriented to place and Yes oriented to time Neck/C-Spine: COMMON NORMALS: no lymphadenopathy Resp: COMMON NORMALS: normal respiratory effort and clear to auscultation bilaterally AUSCULTATION: clear to auscultation bilaterally Cardio: COMMON NORMALS: regular rate and regular rhythm RATE: regular rate RHYTHM: regular rhythm Extremity: NARRATIVE EXTREMITY EXAM: multiple staph abscess like lesions/picked scabs/sores throughout her body; R axillary fluctuant abscess GENERAL: Yes normal exam except as noted Neuro: COMMON NORMALS: patient oriented x3, moves all extremities, no focal motor deficits, no sensory deficits noted and gait normal S ENSORIUM/ORIENTATION: Yes alert, Yes oriented to person, Yes oriented to place and Yes oriented to time Skin: NARRATIVE SKIN EXAM: see above Procedures Abscess I/D Site: upper extremity (R axilla) Side (if applicable): right Local Anesthetic: lidocaine 1% and with epi Amount of anesthesia used (mL): 3.0 Technique: incised with #11 blade Amount of fluid expressed (mL): 7 Packing used?: plain Course 2 Vital Signs: Vital signs: Vital Signs Temperature 97.5 F L 05/30/24 19:28 Pulse Rate 65 05/30/24 19:36 Respiratory Rate 16 05/30/24 19:36 Blood Pressure 114/79 05/30/24 19:28 Pulse Oximetry 98 05/30/24 19:36 Oxygen Delivery Me thod Room Air 05/30/24 19:28 MDM - Skin/Abscess/Foreign Bdy Medicial Decision Making Patient had a right axillary abscess incised and drained. Culture obtained. Vital signs are stable. Blood work obtained in the waiting room is unremarkable. During triage patient had requested testing as she had reportedly had positive home test. Her serum quant is 1.0. She is not having any vaginal bleeding or abdominal pain/cramping. Metallurgist Process/traffic warehouse supervisor through the [facility] program was hoping patient could be admitted for mental health as they would like her to maintain sobriety. Ultimately patient is not suicidal or homicidal. She is her own guardian and does not want to be admitted to [facility]. I do not have anything to place her on a 96-hour hold at this time. She does state that she is going to continue getting services through [facility]. Patient states she cannot take Clindamycin or Bactrim. She will be placed on Doxycycline for staph/MRSA coverage. Will also give her chlorhexidine scrub that she can begin using in the shower. Medical Records I reviewed the patient's medical records. Lab Data I reviewed the patient's lab results. 05/30/24 19:43 05/30/24 19:43 Laboratory Results WBC 7.83 10^3/uL (3.29-11.43) 05/30/24 19:43 RBC 3.86 10^6/uL (3.85-5.65) 05/30/24 19:43 Hgb 11.90 g/dL (11.27-16.99) 05/30/24 19:43 Hct 35.9 % (36-47) L 05/30/24 19:43 MCV 93.0 fl (85-98) 05/30/24 19:43 MCH 30.8 pg (27-33) 05/30/24 19:43 MCHC 33.1 g/dL (30-55) 05/30/24 19:43 RDW 12.8 % (12.1-15.1) 05/30/24 19:43 Plt Count 322 10^3/cmm (157-399) 05/30/24 19:43 MPV 10.0 fL (7.4-10.4) 05/30/24 19:43 Neut % (Auto) 48.4 % 05/30/24 19:43 Lymph % (Auto) 41.4 % 05/30/24 19:43 [place] % (Auto) 7.0 % 05/30/24 19:43 Eos % (Auto) 2.4 % 05/30/24 19:43 Baso % (Auto) 0.5 % 05/30/24 19:43 Neut # (Auto) 3.79 10^3/uL (1.8-7.7) 05/30/24 19:43 Lymph # (Auto) 3.2 10^3/uL (0.8-4.8) 05/30/24 19:43 [place] # (Auto) 0.6 10^3/uL (0.2-0.9) 05/30/24 19:43 Eos # (Auto) 0.2 10^3/uL (0.0-0.8) 05/30/24 19:43 Baso # (Auto) 0.0 10^3/uL (0.0-0.1) 05/30/24 19:43 Nucleated RBC % (auto) 0 % 05/30/24 19:43 Nucleated RBCs # 0.0 /100WBC 05/30/24 19:43 Sodium 138 mmol/L (136-145) 05/30/24 19:43 Potassium 3.4 mmol/L (3.5-5.1) L 05/30/24 19:43 Chloride 99 mmol/L (98-107) 05/30/24 19:43 Carbon Dioxide 27 mmol/L (22-29) 05/30/24 19:43 Anion Gap 15.4 (5-19) 05/30/24 19:43 BUN 11 mg/dL (6-20) 05/30/24 19:43 Creatinine 0.8 mg/dL (0.5-0.9) 05/30/24 19:43 GFR Calculation 88.9 mL/min (90-130) L 05/30/24 19:43 Glucose 110 mg/dL (65-115) 05/30/24 19:43 Calculated Osmolality 286 mOsm/kg (285-295) 05/30/24 19:43 Calcium 9.4 mg/dL (8.5-10.5) 05/30/24 19:43 Total Bilirubin 0.3 mg/dL (0.15-1.2) 05/30/24 19:43 AST 15 U/L (0-32) 05/30/24 19:43 ALT 8 U/L (0-33) 05/30/24 19:43 Alkaline Phosphatase 79 U/L (35-105) 05/30/24 19:43 Total Protein 7.9 g/dL (6.6-8.7) 05/30/24 19:43 Albumin 4.1 g/dL (3.5-5.2) 05/30/24 19:43 Globulin 3.8 g/dL (1.3-4.6) 05/30/24 19:43 Ser , Semi-Qnt 1.00 mIU/mL 05/30/24 19:43 Blood Type O Positive 05/30/24 19:43 Rho(D) Type Rh positive 05/30/24 19:43 Antibody Screen Negative 05/30/24 19:43 No radiology studies performed this visit Discharge Plan Discharge Patient Disposition: Home Clinical Impression: Abscess of axilla, Staphylococcal infection of skin, Polysubstance abuse Condition: Stable Prescriptions: New doxycycline monohydrate 100 mg capsule 100 mg PO Q12H 10 Days Qty: 20 0RF chlorhexidine gluconate 4 % liquid 1 applic topical .qd 14 Days Qty: 3800 0RF Rx Instructions: apply in shower to full body; leave on 2-3 mins then rinse No Action venlafaxine 37.5 mg capsule,extended release 24hr 37.5 mg PO DAILY buspirone 5 mg tablet 5 mg PO BID gabapentin 300 mg capsule 300 mg PO TID diclofenac sodium 75 mg tablet,delayed release (DR/EC) 75 mg PO BID PRN (Reason: pain) Qty: 60 0RF Discharge Orders: Discharge ED (Routine); Ordered 05/30/24 Ordered By: Beverly Oshea Referrals: Eliz Rodriguez PA-C [Primary Care Provider] - Patient Instructions: Abscess (ED), Abscess Follow-up (ED), Abscess Incision and Drainage (DC), Staphylococcus Aureus Infection Activity Restrictions/Additional Instructions: Please monitor your abscess for worsening symptoms such as worsening redness, swelling, increased drainage, red streaking, or fevers. If you have been on antibiotics for over 48 hours and continue to worsen you need to immediately return to the emergency department for re-evaluation. If your abscess was incised and drained and packing was placed, you should have received instructions on when to remove packing-72 hours Coding Level of Care Code ED Tool And Machine Maintainer for Montez Samson
[2024-05-30] MEDS: doxycycline 100 mg Tablet PO (21:54)
[2024-05-30 22:04] VITALS: BP 116/91; PULSE 89; O2SAT 98
== END 2024-05-30 22:06 | disposition home or self-care (01) ==
PROVIDERS: Emergency Medicine; Emergency Provider Physician Assistant; PCP Physician Assistant
DX: L02.411 Cutaneous abscess of right axilla (principal); L08.9 Local infection of the skin and subcutaneous tissue, unspecified; B95.8 Unspecified staphylococcus as the cause of diseases classified elsewhere; F19.10 Other psychoactive substance abuse, uncomplicated; Z77.22 Contact with and (suspected) exposure to environmental tobacco smoke (acute) (chronic)
CPT/HCPCS: 10060; 36415; 80053; 84702; 85025; 86850; 86900; 87070; 87075; 87077; 87186; 87205; 99283; J3490